=== PATIENT | female | born 1965 | race Caucasian/White ===

== ENCOUNTER 2022-09-10 13:27 | Emergency (ER) | payer OTHER ==
[~2022-09-10] VITALS: Ht 175.3 cm; Wt 57.6 kg
--- NOTE | 2022-09-10 13:47 | NUR ---
urine sample sent to lab
--- NOTE | 2022-09-10 14:17 | NUR ---
BLOOD SAMPLES OBTAINED
[2022-09-10] MEDS ORDERED: KETOROLAC TROMETHAMINE INJ 30 MG/ML VIAL IV ONE (14:30)
[2022-09-10] MEDS ORDERED: IV NS 0.9% 1,000 ML BAG IV ONE (14:30)
[2022-09-10] MEDS ORDERED: DICYCLOMINE HCL INJ 20 MG/2 ML AMPUL IM ONE ×2 (14:30→14:41)
[2022-09-10] MEDS ORDERED: ONDANSETRON HCL/PF 4 MG/2 ML VIAL IVP ONE (14:30)
[2022-09-10 14:34] LABS: BASOPHILS # (AUTO) 0.1 K/uL (0.0-0.2); BASOPHILS % (AUTO) 1.6 % (0.0-2.0); EOSINOPHILS % (AUTO) 0.6 % (0.0-6.0); HEMATOCRIT 37 % (33-45); HEMOGLOBIN 12.1 g/dL (11.5-14.8); LYMPHOCYTES # (AUTO) 1.8 K/uL (0.8-4.8); LYMPHOCYTES % (AUTO) 46.5 % (20.0-44.0); MEAN CORPUSCULAR HGB CONC 33 g/dl (31.0-36.0); MEAN CORPUSCULAR VOLUME 94 fL (82-100); MONOCYTES # (AUTO) 0.4 K/uL (0.1-1.30); MONOCYTES % (AUTO) 9.8 % (2.0-12.0); NEUTROPHILS # (AUTO) 1.6 K/uL (1.8-8.9); NEUTROPHILS % (AUTO) 41.5 % (43.0-81.0); PLATELET COUNT (AUTO) 195 K/uL (150-450); RED BLOOD CELL COUNT(AUTO) 3.95 MIL/uL (4.0-5.2); WHITE BLOOD COUNT (AUTO) 3.8 K/uL (4.3-11.0)
[2022-09-10 14:39] LABS: CALCIUM, SERUM 8.9 mg/dL (8.5-10.1); CREATININE 0.9 mg/dL (0.6-1.3); POTASSIUM 3.9 mmol/L (3.5-5.1)
[2022-09-10 14:41] LABS: BILIRUBIN,URINE NEGATIVE (NEGATIVE); COLOR,URINE YELLOW (YELLOW); LEUKOCYTE ESTERASE ,URINE 1+ (NEGATIVE); NITRITE, URINE POSITIVE (NEGATIVE); PH,URINE 6.5 (5.0-8.0); PROTEIN,URINE TRACE mg/dl (NEGATIVE); UGLUCOSE NEGATIVE (NEGATIVE); UROBILINOGEN,URINE 0.2 EU/dL (0.2)
[2022-09-10] MEDS ORDERED: ONDANSETRON HCL/PF 4 MG/2 ML VIAL ONE (14:41)
[2022-09-10] MEDS ORDERED: KETOROLAC TROMETHAMINE 15 MG/ML VIAL ONE (14:41)
[2022-09-10 14:45] LABS: ALBUMIN 3.8 g/dL (3.4-5.0); BILIRUBIN,DIRECT 0.1 mg/dL (0.0-0.2); BILIRUBIN,TOTAL 0.2 mg/dL (0.2-1.0); TOTAL PROTEIN, SERUM 6.7 g/dL (6.4-8.2)
[2022-09-10] MEDS ORDERED: IOHEXOL-300 100 ML VIAL IV ONE (14:54)
[2022-09-10] MEDS ORDERED: CT SWABBABLE VALVE TRANS SET 1 EA INFUS.SET MC ONE (14:54)
[2022-09-10] MEDS ORDERED: IV NS 0.9% 250 ML IV ONE (14:54)
[2022-09-10] MEDS ORDERED: TRAMADOL HCL 50 MG TABLET ONE (15:23)
[2022-09-10] MEDS ORDERED: TRAMADOL HCL 50 MG TABLET PO ONE (15:30)
[2022-09-10 16:16] LABS: BACTERIA,URINE 2+ /HPF (None Seen); RBC,URINE 0-2 /HPF (0-2)
[2022-09-10] MEDS ORDERED: POLY17PO4 PO (16:23)
[2022-09-10] MEDS ORDERED: ACYC400T19 PO (16:23)
[2022-09-10] MEDS ORDERED: DOCU-141 PO (16:23)
[2022-09-10 16:28] VITALS: BP 92/57; TEMP 97.7; O2SAT 98
--- NOTE | 2022-09-10 16:28 | NUR ---
Patient discharged to home in stable condition. Written and verbal after care instructions given. Patient verbalizes understanding of instruction.IV removed. Catheter intact and site benign. Pressure and 4x4 applied to site. No bleeding noted.
== END 2022-09-10 16:32 | disposition home or self-care (01) ==
LOC: ER 13:35
DX: K59.00 Constipation, unspecified (principal); Z79.899 Other long term (current) drug therapy
CPT/HCPCS: 99285; 74177; 96374; 96361; 85025; 80048; 87086; 83690; 80076; 81001; 36415; 96372; J2405; J7030; J7050; J0500; Q9967; J1885